=== PATIENT | female | born 1970 | race Caucasian/White ===

== ENCOUNTER 2023-10-16 12:14 | Outpatient (CLI) | payer OTHER, SELFPAY ==
[2023-10-16 17:36] LABS: Free T4 Free Thyroxine 1.71 ng/mL (0.78-2.19)
[2023-10-16 18:16] LABS: Thyroid Stimulating Hormone 0.236 uIU/mL (0.465-4.680); Total Triiodothyronine (T3) 1.31 NG/ML (0.97-1.69)
[2023-10-19 01:48] LABS: Thyroid Peroxidase Antibodies <1 IU/mL (<9)
[2023-10-19 12:27] LABS: DHEA-Sulfate 70 mcg/dL (8-188)
[2023-10-20 14:02] LABS: Testosterone Total 24 ng/dL (2-45)
[2023-10-23 13:28] LABS: Thyroid Stimulating Immunoglob 94 % baseline (<140)
[2023-10-25 13:02] LABS: Thyrotropin Receptor Antibody <1.00 IU/L (<=2.00)
== END 2023-10-16 12:15 | disposition home or self-care (01) ==
LOC: ANHWCLAB 12:16
PROVIDERS: PCP Internal Medicine; Visit Provider Internal Medicine
DX: E04.2 Nontoxic multinodular goiter (principal); E05.90 Thyrotoxicosis, unspecified without thyrotoxic crisis or storm; L68.0 Hirsutism
CPT/HCPCS: 36415; 82627; 83498; 83519; 84403; 84439; 84443; 84445; 84480; 86376

== ENCOUNTER 2023-10-29 09:15 | Emergency (ER) | payer OTHER, SELFPAY ==
[2023-10-29 09:17] VITALS: BP 136/102; PULSE 82; RESP 16; TEMP 36.9; O2SAT 99
[2023-10-29 09:55] LABS: Appearance Urine Cloudy (Clear); Bacteria Urine 1+ /hpf; Bilirubin Urine Negative (Negative); Blood Urine Negative (Negative); Color Urine Yellow (Yellow); Glucose Urine UA Negative (Negative); Ketones Urine 1+ mg/dL (Negative); Leukocyte Esterase Ur 1+ LEU/UL (Negative); Nitrate Urine Negative (Negative); Non Pathogenic Casts 0-2; Protein Urine Negative (Negative); RBC Urine 0-2 /hpf (0-2); Specific Grav Ur 1.014 (1.001-1.035); Squamous Epithelial Cell Urine Moderate /hpf (Few)
[2023-10-29 09:58] LABS: Add Urine Microscopic? YES
[2023-10-29 10:14] LABS: Amphetamine Screen Urine Negative (Negative); Barbiturate Screen Urine Negative (Negative); Benzodiazepines Screen Urine Negative (Negative); Cannabinoid Screen Urine Positive (Negative); Cocaine Screen Urine Negative (Negative); Methadone Screen Urine Negative (Negative); Opiate Screen Urine Negative (Negative); Phencyclidine Screen Urine Negative (Negative)
[2023-10-29 10:14] LABS: Basophils Absolute Auto 0.1 K/mm3 (0.0-0.1); Basophils Percent Auto 1.2 % (0.2-1.2); Eosinophils Absolute Auto 0.3 K/mm3 (0-0.3); Eosinophils Percent Auto 4.5 % (0-4.4); Hematocrit 42.6 % (37.0-47.0); Immature Granulocyte Absolute 0.02 K/mm3 (0.00-0.031); Immature Granulocyte Percent A 0.3 % (0-0.5); Lymphocytes Absolute Auto 1.25 K/mm3 (0.9-3.2); Lymphocytes Percent Auto 16.4 % (18.3-44.2); Mean Corpuscular HGB Conc 32.9 g/dl (32-36); Mean Corpuscular Volume 91.4 fl (80-100); Mean Platelet Volume 10.4 fl (7.4-10.4); Monocytes Absolute Auto 0.6 K/mm3 (0.1-0.6); Monocytes Percent Auto 8.4 % (2.6-8.5); Neutrophils Absolute Auto 5.3 K/mm3 (1.3-6.7); Neutrophils Percent Auto 69.2 % (45.5-73.1); Platelet Count Result 368 k/mm3 (150-375); Red Blood Count 4.66 M/mm3 (4.2-5.4); Red Cell Distribution Width 13.3 % (11.5-14.5); White Blood Count 7.6 K/mm3 (4.5-10.0)
[2023-10-29 10:24] LABS: Alanine Aminotransferase 22 U/L (6-35); Albumin Level 4.6 g/dL (3.5-5.1); Alkaline Phosphatase 84 U/L (38-126); Anion Gap 8 mmol/L (8-16); Aspartate Amino Transferase 34 U/L (14-36); Bilirubin,Total 0.8 mg/dL (0.2-1.3); Blood Urea Nitrogen 11 mg/dL (7-17); Calcium 9.8 mg/dL (8.4-10.2); Carbon Dioxide 26 mmol/L (22-30); Chloride 105 mmol/L (98-107); Estimated CRCL calculation 81 ml/min; Estimated Glomerular Filt Rate > 60; Ethanol < 10 mg/dL (<10); Glucose 114 mg/dL (65-110); Potassium 3.9 mmol/L (3.4-5.0); Sodium 139 mmol/L (137-145)
[2023-10-29 10:25] LABS: Influenza A QL RT-PCR Negative (Negative); Influenza B QL RT-PCR Negative (Negative); RSV RNA, RT-PCR Negative (Negative); SARS-CoV-2 RNA PCR Negative (Negative)
--- NOTE | 2023-10-29 10:29 | PC.NURSE ---
Pt reports to RN on 09/14/23 her of 26 years left her. Pt states it was out of the blue Pt went to PMD due to anxiety new RX started, with instructions to report to ER if no improvement on new RX. Pt states is recovering for ETOH abuse. Pt has been sober for 5 years. Reports the day he left she bought 12 pack of beer, reports did not drink any of. Pt states she has been online to research how many Effexor pills it would take to kill herself. Pt denies S/I or H/I at time of admission. Friend with pt who appears to be very supportive.
--- NOTE | 2023-10-29 10:36 | ED.PSYCH ---
HPI - Psych General Chief Complaint: Psychiatric Symptoms Stated Complaint: disturbed thoughts Time Seen by Provider: 10/29/23 09:26 History of Present Illness HPI Narrative: Patient is a 53-year-old female who presents ER with depression and anxiety. Recently started on a new medication for bipolar. She has only been on it for several days. Her ex- is moving back into her home and she has to let him because she cannot afford the place prior self. This is causing increased stress. No active SI or HI. Had passive SI couple days ago which is why she was started on the new medication. She shows no previous hospitalizations for suicidal ideation. Has found no alleviating factors for her symptoms. Patient is tearful. Related Data Home Medications Medication Instructions Recorded Confirmed aspirin 81 mg tablet,delayed 81 mg PO DAILY 10/16/23 release (Adult Low Dose Aspirin) atorvastatin 10 mg tablet (Lipitor) 10 mg PO DAILY 10/16/23 cholecalciferol (vitamin D3) 62.5 mcg PO 10/16/23 mcg (2,500 unit) capsule clopidogrel 75 mg tablet (Plavix) 75 mg PO DAILY 10/16/23 cyanocobalamin (vitamin B-12) 100 mcg subcut DAILY 10/16/23 1,000 mcg/mL injection solution lorazepam 0.5 mg tablet 0.5 mg PO DAILY PRN 10/16/23 metformin 500 mg tablet,extended 500 mg PO DAILY 10/16/23 release 24 hr metoprolol succinate 50 mg 50 mg PO DAILY 10/16/23 tablet,extended release 24 hr venlafaxine 150 mg 150 mg PO DAILY 10/16/23 capsule,extended release 24 hr (Effexor XR) venlafaxine 75 mg capsule,extended 75 mg PO DAILY 10/16/23 release 24 hr (Effexor XR) Allergies Allergy/AdvReac Type Severity Reaction Status Date / Time Iodinated Contrast Media Allergy Mild Anaphylactic Verified 10/29/23 09:22 Shock Review of Systems Review of Systems: All systems reviewed & are unremarkable except as noted in HPI and below Constitutional: Constitutional: Reports no additional constitutional complaints ENT: Reports system reviewed and no additional complaints, except as documented Cardiovascular: Cardiovascular: Reports no additional cardiovascular complaints Respiratory: Respiratory: Reports no additional respiratory complaints Gastrointestinal: Gastrointestinal: Reports no additional gastrointestinal complaints Musculoskeletal: Musculoskeletal: Reports no additional musculoskeletal complaints [facility] Past Medical History Medical History Hirsutism Presence of Watchman left atrial appendage closure device Surgical History Surgical History H/O cardiac radiofrequency ablation H/O lithotripsy Oct History of hysteroscopy Social History Social History Smoking status: Former smoker Tobacco type: e-cigarettes/vaping Additional smoking assessment comments: no nicotine Alcohol intake: former Alcohol use details: 04/2018 stopped drinking Substance use: never Substance use type: former substance user Exam Narrative: GENERAL: Tearful-appearing, well-nourished, and in no acute distress. HEAD: Normocephalic, atraumatic. EYES: PERRL and EOMI. ENT: Mucous membranes moist. CHEST: Clear to auscultation. No respiratory distress. HEART: Regular rate and rhythm. Normal peripheral pulses. ABDOMEN: Soft, nontender, nondistendeds. EXTREMITIES: Normal range of motion. No edema. SKIN: Warm, dry, no rash. NEURO: Alert and oriented x3. PSYCH: Normal mood and affect. Course Course Emergency Course: patient resting comfortably. Has contracted for safety with crisis. She may reach out to go to the crisis inpatient unit. She is going follow-up with her psychiatrist. Patient follows with endocrinology in the manage her thyroid issues. Vital Signs Vital signs: Vital Signs Temperature 98.4 F 10/29/23 09:17 P
[2023-10-29 11:00] LABS: Thyroid Stimulating Hormone 0.149 uIU/mL (0.465-4.680)
[2023-10-29] MEDS: ALPRAZolam (*CRX) 0.5 MG TABLET PO (11:11)
--- NOTE | 2023-10-29 12:45 | PC.NURSE ---
Yancy Mancia here in ER for evaluation of services
--- NOTE | 2023-10-29 13:09 | PC.NURSE ---
Spoke with Crisis outreach representative, they feel pt is safe to initiate safety plan
== END 2023-10-29 13:45 | disposition home or self-care (01) ==
PROVIDERS: Emergency Provider Emergency Medicine; PCP Internal Medicine
DX: F41.9 Anxiety disorder, unspecified (principal); F32.A Depression, unspecified; Z20.822 Contact with and (suspected) exposure to COVID-19; R82.998 Other abnormal findings in urine
CPT/HCPCS: 36415; 80053; 80307; 81001; 84443; 85025; 87077; 87086; 87088; 87637; 99284; A9270

== ENCOUNTER 2023-10-30 13:56 | Outpatient (CLI) | payer OTHER, SELFPAY ==
--- NOTE | ~2023-10-30 | NM_ITS ---
EXAMINATION: NM thyroid scan w uptake DATE: 10/31/2023 15:31 INDICATION: Nontoxic multinodular goiter. COMPARISON: None. TECHNIQUE: 0.347 mCi I-123 was administered orally. Scintigraphic images of the thyroid gland were o btained at 24 hours. Thyroid uptake was calculated by the technologist. FINDINGS: The thyroid uptake is 25% (normal 10-30%), with the right lobe measuring 9% uptake and the left 16%. There is relatively decreased uptake in superior right thyroid lobe. IMPRESSION: 1. Normal 24-hour iodine uptake. 2. Decreased uptake in superior right thyroid lobe suspicious for a hypoactive nodule. Correlate with ultrasound. Reviewed, dictated and finalized at location E. [facility]EE[facility]
== END 2023-10-30 13:57 | disposition home or self-care (01) ==
PROVIDERS: PCP Internal Medicine; Visit Provider Internal Medicine
DX: E04.2 Nontoxic multinodular goiter (principal); E05.90 Thyrotoxicosis, unspecified without thyrotoxic crisis or storm
CPT/HCPCS: 78014; A9516